=== PATIENT | female | born 1990 | race Caucasian/White ===

== ENCOUNTER 2017-02-17 18:29 | Emergency (ER) | payer BC ==
[~2017-02-17] VITALS: Ht 172.7 cm; Wt 110.5 kg
[2017-02-17] MEDS ORDERED: SODIUM CHLORIDE FLUSH 10ML SYR IVF ONE (19:30)
[2017-02-17] MEDS ORDERED: ONDANSETRON 2MG/ML, 2ML IVPush ONE (19:30)
[2017-02-17] MEDS ORDERED: SODIUM CHLORIDE 0.9% 1,000ML IVBOLUS ONE (19:30)
[2017-02-17 19:40] LABS: HEMATOCRIT 46.8 % (34.6-47.8); HEMOGLOBIN 15.8 g/dL (11.7-16.4); WHITE BLOOD COUNT 9.5 x10^3/uL (3.4-10)
[2017-02-17 19:51] LABS: ASPARTATE AMINO TRANSFERASE 19 U/L (15-37); BLOOD UREA NITROGEN 12 mg/dL (7-18)
[2017-02-17] MEDS ORDERED: morphine SULFATE 10 MG/ML, 1ML ONE ×2 (20:06→21:08)
[2017-02-17] MEDS ORDERED: ONDANSETRON 2MG/ML, 2ML ONE (20:07)
[2017-02-17] MEDS: MORPHINE SULFATE 4 MG/ML, 1ML IVPush PRN ×2 (20:13→21:11)
[2017-02-17] MEDS ORDERED: OMNIPAQUE 350 MG/ML, 100ML BOTTLE ONE (20:52)
[2017-02-17 22:43] VITALS: BP 120/74
== END 2017-02-17 22:45 | disposition home or self-care (01) ==
LOC: ED 19:43
DX: R10.31 Right lower quadrant pain (principal); R11.2 Nausea with vomiting, unspecified; R63.0 Anorexia
CPT/HCPCS: 36415; 74177; 80053; 81003; 83690; 84703; 85025; 96361; 96374; 96375; 96376; 99285; J2405; J7030; Q9967

== ENCOUNTER 2018-09-18 10:17 | Emergency (ER) | payer BC ==
[~2018-09-18] VITALS: Ht 172.7 cm; Wt 116.7 kg
--- NOTE | 2018-09-18 10:45 | NUR ---
PT AMBULATORY TO ROOM 16. PT STATES "I'M 6 WKS AND I WENT TO DR. CALZADA YESTERDAY. SHE SAID THERE WOULD BE A LITTLE BLOOD BUT THERE'S MORE THAN THERE SHOULD BE. I WAS CRAMPING A LOT LAST NIGHT". 1ST . LMP 07/23/18. PT TEARFUL. PT IN [facility], [facility], IN [facility] WITH SIDERAIL X [address], CALL LIGHT AND BELONGINGS WITHIN REACH. EMOTIONAL SUPPORT PROVIDED.
[2018-09-18] MEDS ORDERED: prenatal (11:09)
--- NOTE | 2018-09-18 11:35 | NUR ---
PT TO US.
[2018-09-18 11:43] LABS: BASOPHILS # (AUTO) 0.03 x10^3/uL (0-0.1); BASOPHILS % (AUTO) 0 % (0-1); EOSINOPHILS % (AUTO) 2 % (1-7); LYMPHOCYTES # (AUTO) 2.47 x10^3/uL (1-3.4); LYMPHOCYTES % (AUTO) 22 % (22-44); MD NO; MEAN CORPUSCULAR HGB CONC 33.2 g/dL (32.4-35.8); MEAN CORPUSCULAR VOLUME 87.2 fL (80-100); MONOCYTES # (AUTO) 0.49 x10^3/uL (0.2-0.8); MONOCYTES % (AUTO) 5 % (2-9); NEUTROPHILS # (AUTO) 7.88 x10^3/uL (1.8-6.8); NEUTROPHILS % (AUTO) 71 % (42-75); PLATELET COUNT 246 x10^3/uL (130-400); RED BLOOD COUNT 5.02 x10^6/uL (3.82-5.3); RED CELL DISTRIBUTION WIDTH 13.5 % (9.6-15.2)
--- NOTE | 2018-09-18 12:08 | NUR ---
PT BACK FROM US. VSS, AAO X 4, RESTING COMFORTABLY ON GURNEY AND FALL PRECAUTIONS IN PLACE.
--- NOTE | 2018-09-18 12:51 | NUR ---
SENT [facility] REQUEST FOR BLOOD PRODUCT TO BLOOD BANK. CONSENT SIGNED.
[2018-09-18 13:18] VITALS: BP 134/89
--- NOTE | 2018-09-18 13:22 | NUR ---
PT GIVEN RHOGAM PER MD ORDER. ORDER VERIFIED WITH CHARLETTE MCCLELLAND AND ADMINISTERED APPROPRIATELY.
[2018-09-18 13:59] VITALS: BP 124/69
--- NOTE | 2018-09-18 14:00 | NUR ---
Patient/Caregiver given discharge instructions and they have confirmed that they understand the instructions. Patient ambulatory with steady gait.
== END 2018-09-18 14:02 | disposition home or self-care (01) ==
LOC: ED 11:26
DX: O20.9 Hemorrhage in early pregnancy, unspecified (principal); Z3A.01 Less than 8 weeks gestation of pregnancy
CPT/HCPCS: 36415; 76801; 84702; 85025; 86850; 86900; 99284; J2790

== ENCOUNTER 2018-09-20 11:05 | Emergency (ER) | payer BC ==
[~2018-09-20] VITALS: Ht 172.7 cm; Wt 114.9 kg
[~2018-09-20 11:05] MED LIST: prenatal
--- NOTE | 2018-09-20 11:25 | NUR ---
Pt presents to ED with c/o LLQ cramping pain after pt has experienced a miscarriage two days ago. NADN. Pt ambulates with steady gait and balance. Pt provided call light within reach. Pt denies vomiting, diarrhea, cp, sob, or trauma, or syncope.
[2018-09-20] MEDS ORDERED: HYDROcodone/APAP 5/325 TABLET PO ONE ×2 (11:30→13:00)
[2018-09-20 11:39] LABS: BASOPHILS # (AUTO) 0.03 x10^3/uL (0-0.1); BASOPHILS % (AUTO) 0 % (0-1); EOSINOPHILS # (AUTO) 0.17 x10^3/uL (0-0.4); EOSINOPHILS % (AUTO) 2 % (1-7); LYMPHOCYTES # (AUTO) 2.75 x10^3/uL (1-3.4); LYMPHOCYTES % (AUTO) 24 % (22-44); MD NO; MEAN CORPUSCULAR HEMOGLOBIN 29.6 pg (27.0-34.8); MEAN CORPUSCULAR HGB CONC 33.7 g/dL (32.4-35.8); MEAN CORPUSCULAR VOLUME 87.9 fL (80-100); MONOCYTES # (AUTO) 0.43 x10^3/uL (0.2-0.8); MONOCYTES % (AUTO) 4 % (2-9); NEUTROPHILS % (AUTO) 70 % (42-75); PLATELET COUNT 317 x10^3/uL (130-400); RED BLOOD COUNT 5.12 x10^6/uL (3.82-5.3); RED CELL DISTRIBUTION WIDTH 13.6 % (9.6-15.2)
[2018-09-20 11:50] LABS: ALANINE AMINOTRANSFERASE 28 U/L (12-78); ALBUMIN 3.8 g/dL (3.4-5.0); ANION GAP 7 mmol/L (5-15); CALCIUM 9.2 mg/dL (8.5-10.1); CHLORIDE 110 mmol/L (98-107); CREATININE 0.87 mg/dL (0.55-1.02)
[2018-09-20] MEDS ORDERED: HYDROcodone/APAP 5/325 TABLET ONE ×2 (11:54→13:07)
[2018-09-20 12:01] VITALS: BP 127/74
[2018-09-20 12:09] LABS: ALKALINE PHOSPHATASE 73 U/L (45-117); BILIRUBIN,TOTAL 0.3 mg/dL (0.2-1.0); TOTAL PROTEIN 7.8 g/dL (6.4-8.2)
[2018-09-20] MEDS ORDERED: ONDANSETRON ODT 4 MG PO ONE (13:00)
[2018-09-20] MEDS ORDERED: KETOROLAC 30 MG/1 ML IM ONE (13:00)
--- NOTE | 2018-09-20 13:12 | NUR ---
Patient/Caregiver given discharge instructions and they have confirmed that they understand the instructions. Patient ambulatory with steady gait. PT GIVEN MEDICATIONS.
== END 2018-09-20 13:14 | disposition home or self-care (01) ==
LOC: ED 12:19
DX: O03.9 Complete or unspecified spontaneous abortion without complication (principal); G43.909 Migraine, unspecified, not intractable, without status migrainosus
CPT/HCPCS: 36415; 76801; 80053; 84702; 85025; 99284